=== PATIENT | male | born 1940 | race Two or more races ===

== ENCOUNTER 2017-11-06 07:46 | Emergency (ER) | payer OTHER ==
[~2017-11-06] VITALS: Ht 167.6 cm; Wt 78.9 kg
[2017-11-06] MEDS ORDERED: LOTREL 10-20 M1 EACH (07:57)
[2017-11-06] MEDS ORDERED: TOPROL XL25 MG (07:58)
== END 2017-11-06 10:49 | disposition home or self-care (01) ==
LOC: ER 07:46
DX: S92.252A Displaced fracture of navicular [scaphoid] of left foot, initial encounter for closed fracture (principal); X50.0XXA Overexertion from strenuous movement or load, initial encounter; Y93.01 Activity, walking, marching and hiking; Y92.89 Other specified places as the place of occurrence of the external cause; Y99.8 Other external cause status

== ENCOUNTER 2021-11-07 11:22 | Outpatient (CLI) | payer OTHER ==
[~2021-11-07 11:22] MED LIST: LOTREL 10-20 M1 EACH; TOPROL XL25 MG
== END 2021-11-07 11:55 | disposition home or self-care (01) ==
LOC: LAB 11:22
PROVIDERS: ATTEND Internal Medicine
DX: U07.1 COVID-19 (principal); B34.1 Enterovirus infection, unspecified

== ENCOUNTER 2021-11-08 07:12 | Outpatient (CLI) | payer OTHER | END 2021-11-08 07:15 | disposition home or self-care (01) | LOC: NUCLEAR 07:12 | PROVIDERS: ATTEND Specialist | DX: I11.9 Hypertensive heart disease without heart failure (principal); E11.9 Type 2 diabetes mellitus without complications; E78.5 Hyperlipidemia, unspecified; I25.9 Chronic ischemic heart disease, unspecified | CPT/HCPCS: 78452; 93017; A9500 ==

== ENCOUNTER 2025-05-18 07:47 | Outpatient (CLI) | payer OTHER | END 2025-05-18 07:48 | disposition home or self-care (01) | LOC: NUCLEAR 07:47 | PROVIDERS: ATTEND Specialist | DX: I11.9 Hypertensive heart disease without heart failure (principal) | CPT/HCPCS: 78452; 93017; A9500 ==